=== PATIENT | male | born 1995 | race Caucasian/White ===

== ENCOUNTER 2023-05-08 22:26 | Emergency (ER) | payer SELFPAY ==
[~2023-05-08] VITALS: Ht 180.3 cm; Wt 72.6 kg
[2023-05-08 22:29] VITALS: BP 135/74; PULSE 120; RESP 16; TEMP 98.1; O2SAT 99
[2023-05-08 22:33] VITALS: BP 135/74; PULSE 123; RESP 15; TEMP 98.1; O2SAT 99
== END 2023-05-08 22:51 ==
LOC: MED 22:26
DX: Z02.89 Encounter for other administrative examinations (principal); V49.88XA Car occupant (driver) (passenger) injured in other specified transport accidents, initial encounter; Y93.89 Activity, other specified; Y92.89 Other specified places as the place of occurrence of the external cause; Y99.8 Other external cause status
CPT/HCPCS: 99283